=== PATIENT | male | born 1960 | race Caucasian/White ===

== ENCOUNTER → 2016-12-31 | Outpatient (CLI) | payer BC ==
[~2016-12-31] MED LIST: Iopamidol 755 Mg/ML 100 ML Bottle IVPUSH STA
--- NOTE | 2016-12-31 15:30 | CT ---
CT of the abdomen and pelvis with and without contrast. HISTORY: Left upper quadrant pain TECHNIQUE: Axial CT images were obtained of the abdomen and pelvis before and following administrati on of 100 mL of Isovue-370 in the right antecubital fossa without complication. Coronal and sagittal reconstructions obtained. FINDINGS: The lung bases are clear, no pleural effusion. There is moderate to severe fatty infiltration of the liver. Cholecystectomy clips are noted. The sp shy, adrenal glands, and pancreas appear normal. The kidneys enhance and function symmetrically wit hout evidence of obstructive uropathy. Peripelvic cysts are noted predominantly within the left kidn ey. No bulky retroperitoneal lymphadenopathy or abdominal ascites. The large and small bowel are normal in caliber without evidence of obstruction. Mild diverticulosis without evidence of diverticulitis. There is likely an old area of epiploic appendagitis within the lower descending colon. No free fluid or free air. There is minimal stranding along the anterior roman perior aspect of the bladder with few small intramural calcifications. No pelvic lymphadenopathy. No suspicious osseous abnormalities identified. Mild degenerative changes are noted within the lumba r spine. Anterior bridging osteophytes are noted involving the SI joints, right greater than left. IMPRESSION: 1. No acute findings within the abdomen or pelvis. 2. Small anterior superior bladder wall asymmetry with intramural calcifications of uncertain etiolo gy. 3. Mild diverticulosis without evidence of diverticulitis. 4. Cholecystectomy.
== END ==
LOC: MW.DI 11:12
PROVIDERS: ATTEND Family Medicine
DX: R10.32 Left lower quadrant pain (principal); K57.30 Diverticulosis of large intestine without perforation or abscess without bleeding; K76.0 Fatty (change of) liver, not elsewhere classified; Z90.49 Acquired absence of other specified parts of digestive tract
CPT/HCPCS: 74178; Q9967

== ENCOUNTER 2018-11-11 10:42 | Emergency (ER) | payer BC ==
--- NOTE | 2018-11-11 10:48 | EDM.PDOC ---
ED HPI GENERAL MEDICAL PROBLEM - General Chief Complaint: Lower Extremity Injury/Pain Stated Complaint: RIGHT HIP PAIN FROM FALL Time Seen by Provider: 11/11/18 11:20 Source of Information: Reports: Patient History Limitations: Reports: No Limitations - History of Present Illness INITIAL COMMENTS - FREE TEXT/NARRATIVE: History of present illness: []Patient fell off the fourth rung on a ladder when he minutes ago landing on his right hip. He has not been able to bear weight since. Denies any other injuries, headache, neck pain, chest abdomen or other extremity pain. He denies any numbness or tingling. Review of systems: As per history of present illness and below otherwise all systems reviewed and negative. Past medical history: As per history of present illness and as reviewed below otherwise noncontributory. Surgical history: As per history of present illness and as reviewed below otherwise noncontributory. Social history: No reported history of drug or alcohol abuse. Family history: As per history of present illness and as reviewed below otherwise noncontributory. Physical exam: General: Well developed, well nourished in NAD HEENT: Atraumatic, normocephalic, pupils reactive, negative for conjunctival pallor or scleral icterus, mucous membranes moist, throat clear, neck supple, nontender, trachea midline. Lungs: Clear to auscultation, breath sounds equal bilaterally, chest nontender. Heart: S1S2, regular, negative for clicks, rubs, or JVD. Abdomen: NABS, Soft, nondistended, nontender. Negative for masses or hepatosplenomegaly. Negative for costovertebral tenderness. Pelvis: Stable nontender. Genitourinary: Deferred. Rectal: Deferred. Extremities: Atraumatic, right hip tender there is no shortening or gross deformities of the right lower extremity, distal pulses are palpable sensations intact. negative for cords or calf pain. Neurovascular unremarkable. Neuro: Awake, alert, oriented. Cranial nerves II through XII unremarkable. Cerebellum unremarkable. Motor and sensory unremarkable throughout. Exam nonfocal. Skin:warm and dry Diagnostics: X-ray right hip and pelvis negative for fracture Therapeutics: Toradol IM ED Course: Unremarkable Impression: Right hip contusion Prescriptions: None Plan: Follow-up with primary care as needed. Follow-up with ER if symptoms worsen or change. Definitive disposition and diagnosis as appropriate pending reevaluation and review of above. Right Hip Pain Score (Numeric/FACES): 5 - Related Data Allergies Allergy/AdvReac Type Severity Reaction Status Date / Time No Known Allergies Allergy Verified 11/11/18 10:48 Home Meds: Home Meds Lansoprazole [Prevacid] 1 tab PO DAILY 06/29/14 [History] Meloxicam [Mobic] 30 mg PO DAILY 11/11/18 [History] Review of Systems - Review of Systems Review Of Systems: ROS reveals no pertinent complaints other than HPI. ED EXAM, GENERAL - Physical Exam Exam: See Below (See history of present illness) Course - Vital Signs Last Recorded V/S: Last Vital Signs Temp 96.7 F 11/11/18 10:46 Pulse 91 11/11/18 10:46 Resp 18 11/11/18 10:46 BP 136/80 11/11/18 10:46 Pulse Ox 95 11/11/18 10:46 - Orders/Labs/Meds Orders: Active Orders 24 hr Category Date Time Status Ketorolac [Toradol] Med 11/11/18 11:39 Once 60 mg IM ONETIME ONE Departure - Departure Time of Disposition: 11:40 Disposition: Home, Self-Care 01 Condition: Good Clinical Impression: Contusion of right hip Qualifiers: Encounter type: initial encounter Qualified Code(s): S70.01XA - Contusion of right hip, initial encounter - Discharge Information *PRESCRIPTION DRUG MONITORING PROGRAM REVIEWED*: No *COPY OF PRESCRIPTION DRUG MONITORING REPORT IN PATIENT GIAN[place]: No Forms: ED Department Discharge Additional Instructions: The following information is given to patients seen in the emergency department who are being discharged to home. This information is to outline your options for follow-up care. We provide all patients seen in our emergency department with a follow-up referral. The need for follow-up, as well as the timing and circumstances, are variable depending upon the specifics of your emergency department visit. If you don't have a primary care physician on staff, we will provide you with a referral. We always advise you to contact your personal physician following an emergency department visit to inform them of the circumstance of the visit and for follow-up with them and/or the need for any referrals to a consulting specialist. The emergency department will also refer you to a specialist when appropriate. This referral assures that you have the opportunity for follow-up care with a specialist. All of these measure are taken in an effort to provide you with optimal care, which includes your follow-up. Under all circumstances we always encourage you to contact your private physician who remains a resource for coordinating your care. When calling for follow-up care, please make the office aware that this follow-up is from your recent emergency room visit. If for any reason you are refused follow-up, please contact the [facility] Emergency Department at and asked to speak to the emergency department charge nurse. [facility] [address] [place] [phone] - My Orders Last 24 Hours: My Active Orders 11/11/18 11:39 Ketorolac [Toradol] 60 mg IM ONETIME ONE - Assessment/Plan Last 24 Hours: My Active Orders 11/11/18 11:39 Ketorolac [Toradol] 60 mg IM ONETIME ONE
--- NOTE | 2018-11-11 11:37 | CR ---
EXAMINATION: Pelvis and right hip HISTORY: Fall COMPARISON: The dated 12/31/2016 TECHNIQUE: AP pelvis and 2 views of the right hip FINDINGS: There is no acute osseous abnormality, dislocation, or fracture. Bone mineralization and joint spaces are preserved. Iliopectineal lines are intact. SI joints are symmetric. No mineralization and joint spaces are preserved. IMPRESSION: No acute osseous abnormality identified.
[2018-11-11] MEDS ORDERED: Ketorolac 60 MG/2 ML SDV IM ONE (11:39)
== END 2018-11-11 12:15 | disposition home or self-care (01) ==
LOC: MW.ED 10:42
DX: S70.01XA Contusion of right hip, initial encounter (principal); Z79.899 Other long term (current) drug therapy; W11.XXXA Fall on and from ladder, initial encounter
CPT/HCPCS: 73502; 96372; 99283; J1885

== ENCOUNTER 2023-09-01 12:42 | Emergency (ER) | payer BC ==
[2023-09-01 13:41] LABS: BASOPHILS ABSOLUTE AUTO 0.04 K/uL (0.00-0.20); BASOPHILS PERCENT AUTO 0.5 % (0.0-1.0); EOSINOPHILS ABSOLUTE AUTO 0.23 K/uL (0.00-0.45); EOSINOPHILS PERCENT AUTO 2.9 % (0.0-6.0); HEMATOCRIT 43.7 % (42.0-52.0); IMMATURE GRAN ABSOLUTE AUTO 0.04 K/uL (0.00-0.05); IMMATURE GRAN PERCENT AUTO 0.5 % (0.0-0.4); LYMPHOCYTES ABSOLUTE AUTO 2.02 K/uL (1.00-4.80); LYMPHOCYTES PERCENT AUTO 25.3 % (24.0-44.0); MEAN CORPUSCULAR HEMOGLOBIN 24.7 pg (28.0-32.0); MEAN CORPUSCULAR VOLUME 77.1 fL (83.0-99.0); MEAN PLATELET VOLUME 10.3 fL (9.4-12.4); MONOCYTES ABSOLUTE AUTO 0.95 K/uL (0.00-0.80); MONOCYTES PERCENT AUTO 11.9 % (0.0-8.0); NEUTROPHILS ABSOLUTE AUTO 4.71 K/uL (1.80-7.70); NEUTROPHILS PERCENT AUTO 58.9 % (41.0-71.0); PLATELET COUNT,PLT 246 K/uL (150-400); RED BLOOD CELL COUNT 5.67 M/uL (4.52-5.90); WHITE BLOOD CELL COUNT,WBC 7.99 K/uL (3.9-11.3)
[2023-09-01 14:03] LABS: INR 1.02 (0.86-1.11)
[2023-09-01 14:30] LABS: ALBUMIN 3.9 g/dL (3.4-5.0); BILIRUBIN TOTAL 0.5 mg/dL (0.2-1.0); CALCIUM 9.3 mg/dL (8.5-10.1); CREATININE 1.2 mg/dL (0.8-1.3); EST CRCL DRUG DOSING (CG) 69.16 mL/min; POTASSIUM,K 4.1 mmol/L (3.5-5.1); PROTEIN TOTAL,TP 7.8 g/dL (6.4-8.2)
== END 2023-09-01 16:01 | disposition home or self-care (01) ==
LOC: MW.ED 12:42
DX: R07.2 Precordial pain (principal); Z79.899 Other long term (current) drug therapy
CPT/HCPCS: 36415; 71045; 71045-26; 80053; 83690; 84484; 85025; 85379; 85610; 85730; 93010; 99282; 99285